=== PATIENT | male | born 1980 | race Caucasian/White ===

== ENCOUNTER 2017-09-28 04:27 | Emergency (ER) | payer OTHER ==
[~2017-09-28] VITALS: Ht 182.9 cm; Wt 90.7 kg
[2017-09-28 04:30] VITALS: Ht 182.9 cm; Wt 90.7 kg
[2017-09-28 05:48] VITALS: BP 132/93
== END 2017-09-28 05:48 | disposition home or self-care (01) ==
LOC: ED 04:27
DX: S39.012A Strain of muscle, fascia and tendon of lower back, initial encounter (principal); X58.XXXA Exposure to other specified factors, initial encounter; Y93.89 Activity, other specified; Y99.8 Other external cause status; Y92.89 Other specified places as the place of occurrence of the external cause